=== PATIENT | male | born 1975 | race Caucasian/White ===

== ENCOUNTER 2023-07-10 20:13 | Inpatient (IN) | payer OTHER ==
[2023-07-10 21:09] VITALS: BMI 26.6
[2023-07-10] MEDS ORDERED: MAG HYDROX/AL HYDROX/SIMETH 30 ML UNIT-DOSE CUP PO PRN (21:11)
[2023-07-10] MEDS ORDERED: NALOXONE HCL 0.4 MG/ML VIAL IM PRN (21:11)
[2023-07-10] MEDS ORDERED: MAGNESIUM HYDROX 2400MG/30ML ORAL SUSPENSION 30 ML CUP PO PRN (21:11)
[2023-07-10] MEDS ORDERED: guaiFENesin 600 MG TABLET.ER (FP) PO PRN (21:11)
[2023-07-10] MEDS ORDERED: ONDANSETRON *ODT* 4 MG TABLET SL PRN (21:11)
[2023-07-10] MEDS ORDERED: BENZOCAINE/MENTHOL (CHLORASEPTIC ) LOZENGE MM PRN (21:11)
[2023-07-10] MEDS ORDERED: NALOXONE HCL (KLOXXADO) 8 MG SPRAY NS PRN (21:11)
[2023-07-10] MEDS ORDERED: BISMUTH SUBSALICYLATE 524 MG/30 ML PO PRN (21:11)
[2023-07-10] MEDS ORDERED: DICYCLOMINE HCL 10 MG CAPSULE PO PRN (21:11)
[2023-07-10] MEDS ORDERED: LOPERAMIDE HCL 2 MG CAPSULE PO PRN (21:11)
[2023-07-10] MEDS ORDERED: POLYETHYLENE GLYCOL (HEALTHYLAX) 3350 17 GM PACKET PO PRN (21:11)
[2023-07-10] MEDS ORDERED: NICOTINE POLACRILEX 2 MG LOZENGE BC PRN (21:11)
[2023-07-10] MEDS ORDERED: BENZONATATE 200 MG CAPSULE PO PRN (21:11)
[2023-07-10] MEDS ORDERED: methaDONE HCL 10 MG TABLET (FOR DETOX USE ONLY) ONE (21:25)
[2023-07-10] MEDS: methaDONE HCL 10 MG TABLET (FOR DETOX USE ONLY) PO ONE (21:30)
[2023-07-10] MEDS: THIAMINE HCL 100 MG TABLET (FP) PO SCH (22:59)
[2023-07-10] MEDS: MELATONIN 5 MG TABLETS PO SCH (22:59)
[2023-07-11] MEDS: NICOTINE 14 MG/24 HOURS TOPICAL PATCH TD SCH (10:32)
[2023-07-11] MEDS: hydrOXYzine PAMOATE 25 MG CAPSULE (FP) PO PRN (10:37)
[2023-07-11] MEDS: METHOCARBAMOL 500 MG TABLET PO PRN (10:37)
[2023-07-11] MEDS: PRENATAL VITAMINS W/ FOLIC ACID TABLET (FP) PO SCH (10:37)
[2023-07-11 11:12] LABS: HEMATOCRIT 37.8 % (35.4-49); HEMOGLOBIN 12.1 GM/dL (11.7-16.9); MCH 27.4 pg (25.7-33.7); MCHC 32.1 g/dl (32.0-35.9); MEAN CELL VOLUME 85.6 fl (80-96); MEAN PLT VOLUME 10.3 fl (7.5-11.1); PLATELET COUNT 241 10^3/uL (134-434); RBC 4.41 M/mm3 (4.00-5.60); RDW 16.3 % (11.9-15.9); WHITE BLOOD COUNT 5.5 K/mm3 (4.0-10.0)
[2023-07-11 12:18] LABS: CHLORIDE 112 mmol/L (98-107); SODIUM 143 mmol/L (136-145)
[2023-07-11 12:24] LABS: CALCIUM 8.6 mg/dL (8.5-10.1)
[2023-07-11 12:25] LABS: ALBUMIN 2.8 g/dl (3.4-5.0); ANION GAP 6 mmol/L (4-13); BLOOD UREA NITROGEN 11.3 mg/dL (7-18); CO2 26 mmol/L (21-32); GLUCOSE,RANDOM 109 mg/dL (74-106)
[2023-07-11 12:28] LABS: CREATININE 0.7 mg/dL (0.55-1.3); SGOT/AST 25 U/L (15-37); SGPT/ALT 29 U/L (13-61)
[2023-07-11 12:30] LABS: BILIRUBIN,TOTAL 0.4 mg/dL (0.2-1); TOT PROT 6.2 g/dl (6.4-8.2)
[2023-07-11 12:31] LABS: ALK PHOS 128 U/L (45-117)
[2023-07-12] MEDS: cloNIDine HCL 0.1 MG TABLET PO PRN (06:26)
[2023-07-12] MEDS: methaDONE HCL 10 MG TABLET (FOR DETOX USE ONLY) PO ONE (10:23)
[2023-07-13] MEDS: IBUPROFEN 600 MG TABLET (FP) PO PRN (08:56)
[2023-07-13] MEDS: IBUPROFEN 400 MG TABLET (FP) PO PRN (08:56)
[2023-07-13 12:08] LABS: PH,URINE 7.5 (5.0-8.0); URINE APPEARANCE CLEAR; URINE BILIRUBIN NEGATIVE (NEGATIVE); URINE COLOR YELLOW; URINE GLUCOSE (UA) NEGATIVE (NEGATIVE); URINE KETONE NEGATIVE (NEGATIVE); URINE LEUK ESTERASE NEGATIVE (NEGATIVE); URINE NITRITE NEGATIVE (NEGATIVE); URINE PROTEIN NEGATIVE (NEGATIVE); URINE UROBILINOGEN 0.2 mg/dL (0.2-1.0)
[2023-07-13] MEDS: clonazePAM 0.5 MG ODT TABLETS SL PRN (12:40)
[2023-07-14] MEDS: methaDONE HCL 10 MG TABLET (FOR DETOX USE ONLY) PO ONE (09:34)
[2023-07-14 21:15] VITALS: RESP 18
[2023-07-14] MEDS: ACETAMINOPHEN 325 MG TABLET (FP) PO PRN (21:23)
[2023-07-15 06:57] VITALS: BP 134/28; PULSE 81; TEMP 97.6
== END 2023-07-15 11:59 | disposition home or self-care (01) | DRG 773 ==
LOC: YASAS 20:13 → Y6N 21:13
PROVIDERS: ADMIT Allergy & Immunology; ATTEND Surgery
PROC: HZ2ZZZZ Detoxification Services for Substance Abuse Treatment (ICD-10-PCS; principal; 2023-07-10)
DX: F11.23 Opioid dependence with withdrawal (principal); F14.20 Cocaine dependence, uncomplicated; F17.210 Nicotine dependence, cigarettes, uncomplicated; F19.24 Other psychoactive substance dependence with psychoactive substance-induced mood disorder; M79.604 Pain in right leg; R26.89 Other abnormalities of gait and mobility; Z98.890 Other specified postprocedural states; Z99.89 Dependence on other enabling machines and devices; Z59.00 Homelessness unspecified
CPT/HCPCS: 36415; 80053; 80305; 80307; 81003; 85027; 86780; 87635; 93005; 93010

== ENCOUNTER 2023-07-22 00:16 | Inpatient (IN) | payer OTHER ==
[2023-07-22 00:54] VITALS: BMI 28.1
[2023-07-22] MEDS: VANCOMYCIN/WATER 1250 MG 1,250 MG/250 ML BAG IVPB ONE (01:48)
[2023-07-22] MEDS: PIPERACILLIN/TAZOB 4.5 GM 4.5 GM in DEXTROSE 5%-WATER 100 ML IVPB ONE (01:48)
[2023-07-22] MEDS ORDERED: CLINDAMYCIN HCL 150 MG CAPSULE (FP) ONE ×2 (01:50→12:38)
[2023-07-22] MEDS: CLINDAMYCIN HCL 150 MG CAPSULE (FP) PO ONE (01:52)
[2023-07-22 02:03] LABS: BASO % 0.9 % (0-2.0); EOS % 3.8 % (0-4.5); HEMATOCRIT 32.9 % (35.4-49); HEMOGLOBIN 10.8 GM/dL (11.7-16.9); LYMPH % 24.8 % (8-40); MCH 27.6 pg (25.7-33.7); MEAN CELL VOLUME 83.8 fl (80-96); MEAN PLT VOLUME 9.8 fl (7.5-11.1); MONO % 9.9 % (3.8-10.2); NEUT % 60.6 % (42.8-82.8); PLATELET COUNT 289 10^3/uL (134-434); RBC 3.92 M/mm3 (4.00-5.60); RDW 15.6 % (11.9-15.9)
[2023-07-22 02:21] LABS: POTASSIUM 4.6 mmol/L (3.5-5.1)
[2023-07-22 02:23] LABS: ALBUMIN 2.6 g/dl (3.4-5.0); BLOOD UREA NITROGEN 10.3 mg/dL (7-18); CALCIUM 8.6 mg/dL (8.5-10.1)
[2023-07-22 02:27] LABS: CREATININE 0.8 mg/dL (0.55-1.3)
[2023-07-22 02:28] LABS: BILIRUBIN,TOTAL 0.4 mg/dL (0.2-1)
[2023-07-22 02:35] LABS: LACTIC ACID 2.1 mmol/L (0.4-2.0)
[2023-07-22] MEDS ORDERED: methaDONE HCL 10 MG TABLET ONE (07:20)
[2023-07-22] MEDS: methaDONE HCL 10 MG TABLET PO ONE (07:24)
[2023-07-22] MEDS: INSULIN ASPART SLIDING SCALE (NOVOLOG) 1 VIAL SQ SCH (07:30)
[2023-07-22] MEDS ORDERED: INSULIN (NOVOLOG) ASPART 100 UNITS/ML 10ML VIAL ONE (07:31)
[2023-07-22] MEDS ORDERED: ENOXAPARIN NA (PORCINE) 40 MG/0.4 ML DISP.SYRIN SQ ONE (10:15)
[2023-07-22] MEDS ORDERED: NICOTINE 14 MG/24 HOURS TOPICAL PATCH TD ONE (10:15)
[2023-07-22 10:58] LABS: BASO % 0.4 % (0-2.0); EOS % 3.3 % (0-4.5); HEMATOCRIT 35.4 % (35.4-49); HEMOGLOBIN 11.7 GM/dL (11.7-16.9); LYMPH % 19.8 % (8-40); MCH 27.6 pg (25.7-33.7); MCHC 33.1 g/dl (32.0-35.9); MEAN CELL VOLUME 83.4 fl (80-96); MEAN PLT VOLUME 9.8 fl (7.5-11.1); MONO % 2.9 % (3.8-10.2); NEUT % 73.6 % (42.8-82.8); PLATELET COUNT 315 10^3/uL (134-434); RBC 4.24 M/mm3 (4.00-5.60); RDW 15.5 % (11.9-15.9); WHITE BLOOD COUNT 5.8 K/mm3 (4.0-10.0)
[2023-07-22 11:22] LABS: POTASSIUM 3.8 mmol/L (3.5-5.1)
[2023-07-22 11:23] LABS: CALCIUM 8.9 mg/dL (8.5-10.1)
[2023-07-22 11:24] LABS: ALBUMIN 2.6 g/dl (3.4-5.0); BLOOD UREA NITROGEN 8.6 mg/dL (7-18); MAGNESIUM 1.8 mg/dL (1.8-2.4)
[2023-07-22 11:27] LABS: CREATININE 0.6 mg/dL (0.55-1.3); PHOSPHOROUS 2.7 mg/dL (2.5-4.9)
[2023-07-22] MEDS: ENOXAPARIN NA (PORCINE) 40 MG/0.4 ML DISP.SYRIN SQ SCH (11:28)
[2023-07-22] MEDS: NICOTINE 14 MG/24 HOURS TOPICAL PATCH TD SCH (11:28)
[2023-07-22 11:29] LABS: BILIRUBIN,TOTAL 0.4 mg/dL (0.2-1); TOT PROT 5.9 g/dl (6.4-8.2)
[2023-07-22] MEDS: CLINDAMYCIN HCL 150 MG CAPSULE (FP) PO SCH (12:41)
[2023-07-22] MEDS: PIPERACILLIN/TAZOB 3.375 GM 3.375 GM in DEXTROSE 5%-WATER - 50 ML IVPB SCH (12:56)
[2023-07-22] MEDS: KETOROLAC TROMETHAMINE 15 MG/ML VIAL IVPUSH ONE (16:44)
[2023-07-22] MEDS ORDERED: PIPERACILLIN/TAZOB 3.375 GM 3.375 GM/50 ML BAG IVPB ONE (18:46)
[2023-07-23] MEDS: KETOROLAC TROMETHAMINE 15 MG/ML VIAL IM ONE (00:31)
[2023-07-23] MEDS: ACETAMINOPHEN 325 MG TABLET (FP) PO PRN (10:37)
[2023-07-23] MEDS: cloNIDine HCL 0.1 MG TABLET PO PRN (15:08)
[2023-07-23] MEDS ORDERED: INSULIN (NOVOLOG) ASPART 100 UNITS/ML 10ML VIAL ONE (16:50)
[2023-07-24 07:14] LABS: METHADONE, UR NEGATIVE (NEGATIVE); OPIATES, URI NEGATIVE (NEGATIVE); PHENCYCLIDINE,URINE NEGATIVE (NEGATIVE); URINE BARBITURATES NEGATIVE (NEGATIVE)
[2023-07-24 07:19] LABS: COCAINE, UR POSITIVE (NEGATIVE); URINE AMPHETAMINES NEGATIVE (NEGATIVE); URINE BENZODIAZEPINES NEGATIVE (NEGATIVE)
[2023-07-24] MEDS: methaDONE HCL 10 MG TABLET PO ONE (09:51)
[2023-07-24] MEDS: KETOROLAC TROMETHAMINE 15 MG/ML VIAL IM PRN (17:41)
[2023-07-24] MEDS: ACETAMINOPHEN 1000 MG/100 ML BAG IVPB ONE (19:52)
[2023-07-24] MEDS: traMADol HCL 50 MG TABLET PO ONE (21:35)
[2023-07-24] MEDS: KETOROLAC TROMETHAMINE 15 MG/ML VIAL IVPUSH ONE (21:43)
[2023-07-25] MEDS ORDERED: INSULIN (NOVOLOG) ASPART 100 UNITS/ML 10ML VIAL ONE (08:41)
[2023-07-25] MEDS: LIDOCAINE 4% PATCH TP SCH (09:38)
[2023-07-25] MEDS ORDERED: ACETAMINOPHEN 500 MG TABLET (FP) PO PRN (12:07)
[2023-07-25] MEDS: KETOROLAC TROMETHAMINE 15 MG/ML VIAL IM PRN (13:39)
[2023-07-25 15:37] LABS: HEMATOCRIT 39.2 % (35.4-49); HEMOGLOBIN 12.7 GM/dL (11.7-16.9); MCH 27.5 pg (25.7-33.7); MCHC 32.4 g/dl (32.0-35.9); MEAN CELL VOLUME 84.9 fl (80-96); MEAN PLT VOLUME 9.7 fl (7.5-11.1); PLATELET COUNT 321 10^3/uL (134-434); RBC 4.61 M/mm3 (4.00-5.60); RDW 15.9 % (11.9-15.9)
[2023-07-25 16:07] LABS: CALCIUM 8.7 mg/dL (8.5-10.1)
[2023-07-25 16:08] LABS: ALBUMIN 2.7 g/dl (3.4-5.0); BLOOD UREA NITROGEN 18.3 mg/dL (7-18)
[2023-07-25 16:11] LABS: CREATININE 0.9 mg/dL (0.55-1.3)
[2023-07-25 16:12] LABS: BILIRUBIN,TOTAL 0.3 mg/dL (0.2-1); TOT PROT 6.7 g/dl (6.4-8.2)
[2023-07-25] MEDS: traMADol HCL 50 MG TABLET PO ONE (18:00)
[2023-07-25] MEDS: INSULIN ASPART SLIDING SCALE (NOVOLOG) 1 VIAL SQ SCH (18:01)
[2023-07-25] MEDS: LIDOCAINE PATCH REMOVAL MC SCH (21:07)
[2023-07-26] MEDS: methaDONE HCL 10 MG TABLET PO ONE (09:47)
[2023-07-26] MEDS: TRIMETHOBENZAMIDE HCL 200MG/2ML INJ IM PRN (12:01)
[2023-07-26] MEDS: traMADol HCL 50 MG TABLET PO ONE (22:16)
[2023-07-26] MEDS: MELATONIN 5 MG TABLETS PO SCH (22:16)
[2023-07-26] MEDS: ACETAMINOPHEN 1000 MG/100 ML BAG IVPB ONE (22:16)
[2023-07-27] MEDS: AMOX TR/POT CLAV 875MG/125MG TABLETS (FP) PO SCH (17:19)
[2023-07-27] MEDS: KETOROLAC TROMETHAMINE 15 MG/ML VIAL IVPUSH PRN (22:52)
[2023-07-28 18:07] VITALS: BP 130/80; PULSE 80; RESP 16; TEMP 98.5
[2023-07-28] MEDS: KETOROLAC TROMETHAMINE 15 MG/ML VIAL IVPUSH ONE (23:03)
[2023-07-29] MEDS: ONDANSETRON *ODT* 4 MG TABLET SL PRN (12:05)
== END 2023-07-29 17:54 | disposition other institution (70) | DRG 383 ==
LOC: JER 00:16 → JERBED 04:10 → J7W 22:10
PROVIDERS: ADMIT Internal Medicine; ATTEND Nurse Practitioner
DX: L03.116 Cellulitis of left lower limb (principal); R78.81 Bacteremia; F11.20 Opioid dependence, uncomplicated; F14.20 Cocaine dependence, uncomplicated; L03.115 Cellulitis of right lower limb; F41.9 Anxiety disorder, unspecified; F32.A Depression, unspecified; F17.210 Nicotine dependence, cigarettes, uncomplicated; F19.10 Other psychoactive substance abuse, uncomplicated; R73.9 Hyperglycemia, unspecified
CPT/HCPCS: 36415; 73552-TC-LT-FY; 73590-TC-LT-FY; 73610-TC-LT-FY; 73630-TC-LT; 80053; 80307; 82962; 83036; 83605; 83735; 84100; 85025; 85027; 87040; 87635; 93970-TC; 97162-GP; 99285-25; J0131; Q0162

== ENCOUNTER 2023-07-29 19:52 | Inpatient (IN) | payer OTHER ==
[2023-07-29 20:43] VITALS: BMI 26.6
[2023-07-29] MEDS ORDERED: ACETAMINOPHEN 500 MG TABLET (FP) PO PRN (21:26)
[2023-07-29] MEDS ORDERED: MAGNESIUM HYDROX 2400MG/30ML ORAL SUSPENSION 30 ML CUP PO PRN (21:27)
[2023-07-29] MEDS ORDERED: BENZOCAINE/MENTHOL (CHLORASEPTIC ) LOZENGE MM PRN (21:27)
[2023-07-29] MEDS ORDERED: hydrOXYzine PAMOATE 25 MG CAPSULE (FP) PO PRN (21:27)
[2023-07-29] MEDS ORDERED: BENZONATATE 200 MG CAPSULE PO PRN (21:27)
[2023-07-29] MEDS ORDERED: MAG HYDROX/AL HYDROX/SIMETH 30 ML UNIT-DOSE CUP PO PRN (21:27)
[2023-07-29] MEDS ORDERED: METHOCARBAMOL 500 MG TABLET PO PRN (21:27)
[2023-07-29] MEDS ORDERED: LOPERAMIDE HCL 2 MG CAPSULE PO PRN (21:27)
[2023-07-29] MEDS ORDERED: guaiFENesin 600 MG TABLET.ER (FP) PO PRN (21:27)
[2023-07-29] MEDS ORDERED: POLYETHYLENE GLYCOL (HEALTHYLAX) 3350 17 GM PACKET PO PRN (21:27)
[2023-07-30] MEDS: NAPROXEN 500 MG TABLET PO SCH (00:38)
[2023-07-30] MEDS: THIAMINE HCL 100 MG TABLET (FP) PO SCH (00:38)
[2023-07-30] MEDS: AMOX TR/POT CLAV 875MG/125MG TABLETS (FP) PO SCH (00:38)
[2023-07-30 01:47] VITALS: RESP 18
[2023-07-30] MEDS: PRENATAL VITAMINS W/ FOLIC ACID TABLET (FP) PO SCH (09:05)
[2023-07-30] MEDS ORDERED: BUPRENORPHINE HCL 150 MCG, BUPRENORPHINE HCL 75 MCG BC PRN (11:05)
[2023-07-30] MEDS: BUPRENORPHINE HCL 150 MCG, BUPRENORPHINE HCL 75 MCG BC ONE (12:13)
[2023-07-30] MEDS: SUVOREXANT 10 MG TABLET PO PRN (21:45)
[2023-07-31] MEDS ORDERED: BUPRENORPHINE HCL 150 MCG, BUPRENORPHINE HCL 75 MCG BC PRN
[2023-07-31] MEDS: BUPRENORPHINE HCL 150 MCG, BUPRENORPHINE HCL 75 MCG BC SCH (07:01)
[2023-07-31 07:26] VITALS: BP 131/87; PULSE 100; TEMP 97.5
[2023-08-01] MEDS: BUPRENORPHINE HCL 450 MCG FILM BC SCH (07:09)
[2023-08-02] MEDS ORDERED: BUPRENORPHINE/NALOXONE 4 MG/1 MG FILM PACKET SL SCH (06:00)
[2023-08-03] MEDS ORDERED: BUPRENORPHINE/NALOXONE 8 MG/2 MG FILM PACKET SL SCH (22:00)
== END 2023-08-01 18:50 | disposition left against medical advice (07) | DRG 770 ==
LOC: YASAS 19:52 → Y3W 22:00 → Y5N 22:29
PROVIDERS: ADMIT Allergy & Immunology; ATTEND Psychiatry & Neurology Pain Medicine
PROC: HZ42ZZZ Group Counseling for Substance Abuse Treatment, Cognitive-Behavioral (ICD-10-PCS; principal; 2023-07-29)
DX: F11.20 Opioid dependence, uncomplicated (principal); F14.20 Cocaine dependence, uncomplicated; F17.210 Nicotine dependence, cigarettes, uncomplicated; F19.282 Other psychoactive substance dependence with psychoactive substance-induced sleep disorder; F41.9 Anxiety disorder, unspecified; L03.115 Cellulitis of right lower limb; L03.116 Cellulitis of left lower limb; Z99.89 Dependence on other enabling machines and devices
CPT/HCPCS: 80305